=== PATIENT | male | born 1995 | race Caucasian/White ===

== ENCOUNTER 2016-12-28 10:29 | Emergency (ER) | payer OTHER ==
--- NOTE | 2016-12-28 10:38 | ERNOTE ---
Lower Extremity HPI - Narrative Date of Service: 12/28/16 - General Lower Extremities Pain: ankle: left Time Seen by Provider: 12/28/16 10:37 Source: patient, RN notes reviewed Exam Limitations: no limitations - Immun/Allergies/Home Medications Immunizations: IMMUNIZATION HX Immunizations Up to Date Yes History of Influenza Vaccine No Allergies/Adverse Reactions: Allergies Allergy/AdvReac Type Severity Reaction Status Date / Time No Known Allergies Allergy Verified 12/28/16 10:37 Home Medications: HOME MEDICATIONS NK [No Home Medication] 12/28/16 [Last Taken Unknown] - History of Present Illness Narrative: Maik is a 21-year-old male who presents to the emergency department for right lateral ankle pain. He reports that he jumped off his [address] and landed funny on the ankle late last night. He has continued to have pain and was unable to get his boots on this morning due to the swelling. He denies any prior injury to this extremity. He last took ibuprofen for pain last night. Date (Duration): 12/27/16 Time (Timing): 11:00 Occurred: yesterday Location of Incident: other Method of Injury: Reports: twisted Reason for Fall: Reports: lost balance Loss of Consciousness: Reports: no loss of consciousness Associated Symptoms: Denies: unable to bear weight, snapping, popping sensation Other Injuries: Reports: none Subsequent Symptoms: Denies: sensory loss, numbness, motor loss Prior Treament: Denies: recently seen Review of Systems - Review of Systems Constitutional: Absent: recent illness, fever, chills EYE: Present: no symptoms reported ENT: Present: no symptoms reported Respiratory: Absent: shortness of breath, cough Cardiology: Absent: chest pain, syncope Gastrointestinal/Abdominal: Absent: nausea, abdominal pain Genitourinary: Present: no symptoms reported Musculoskeletal: Present: joint pain, joint swelling. Absent: back pain, neck pain Skin: Present: lumps. Absent: rash, lesions, change in color Neurological: Absent: weakness, numbness, tingling Endocrine: Present: no symptoms reported Hematologic/Lymphatic: Present: no symptoms reported Psych: Present: no symptoms reported - Patient's Past Medical History Patient History - Medical: No pertinent hx Patient History - Cardiac/Respiratory: No pertinent hx Patient History - Cancer: No Hx of Cancer Patient History - Surgical Procedures: No surgical history - Social History Living Situations: home Alcohol Use: none Drug Use: none - Immunizations Immunizations Up to Date: Yes History of Influenza Vaccine: No Physical Exam - Physical Exam General Appearance: Present: wd/wn, alert, no apparent distress Neck: Present: normal inspection, nontender, supple Respiratory: Present: no respiratory distress, no accessory muscle use Cardiovascular/Chest: Present: normal peripheral pulses Peripheral Pulses: N=norm/S=strong/W=weak/B=bound/A=absent: Dorsalis-pedis (R): Strong Extremity Exam: Present: decreased range of motion - Right ankle, bony tenderness - Right lateral ankle, joint swelling - Right lateral ankle Neurological Exam: Present: alert, oriented, normal mood/affect, no motor/ sensory deficits Skin Exam: Present: normal color, warm/dry ED Progress - Vital Signs Patient's Vital Signs:: I have reviewed the patient's vital signs. Vital Signs: Vital Signs 12/28/16 10:31 Temperature 36.9 C Pulse Rate 78 Respiratory 12 Rate Blood Pressure 151/85 O2 Sat by Pulse 98 Oximetry - X-Ray X-Ray #1 X-Ray: ankle Interpretation: Reviewed by me X-ray Comments: History: Left ankle pain. Injury yesterday. Technique: 3 views of the left ankle obtained. Comparison: None. Findings: There is mild lateral soft tissue swelling. Alignment appears within normal limits. Talar mortise is adequately maintained. No fractures identified. IMPRESSION: MILD SOFT TISSUE SWELLING WITH NO ACUTE OSSEOUS PATHOLOGY OTHERWISE IDENTIFIED. Electronically signed by Joselito Dumont M.D.. Joselito Dumont MD - Progress/Reassessment Chief Complaint: Ankle Injury/ Pain Progress:: Unchanged Departure Clinical Impression: Ankle sprain Qualifiers: Encounter type: initial encounter Involved ligament of ankle: unspecified ligament Laterality: left Qualified Code(s): S93.402A - Sprain of unspecified ligament of left ankle, initial encounter - Departure Disposition: Home self-care Condition: Good Instructions: Ankle Sprain Additional Instructions: Weightbearing as tolerated Adarsh wrap for support Ibuprofen 600 mg 3 tablets every 6 hours with food as needed for pain You can also take Tylenol as directed on label Keep the ankle elevated as much as she can Use ice 20 minutes on and then at least 20 minutes off in between times Follow-up with your doctor as needed Referrals: Chele Choudhary DO [Primary Care Provider] -
[2016-12-28 11:29] VITALS: BP 145/85
[2016-12-28] MEDS ORDERED: IBUPROFEN 600 MG TABLET PO ONE (11:32)
[2016-12-28] MEDS ORDERED: IBUPROFEN 600 MG TABLET ONE (11:38)
== END 2016-12-28 11:41 | disposition home or self-care (01) ==
LOC: ER 10:29
DX: S93.402A Sprain of unspecified ligament of left ankle, initial encounter (principal); V86.95XA Unspecified occupant of 3- or 4- wheeled all-terrain vehicle (ATV) injured in nontraffic accident, initial encounter; Y93.89 Activity, other specified